=== PATIENT | female | born 1975 | race Caucasian/White ===

== ENCOUNTER → 2018-01-02 | Outpatient (CLI) | payer BC ==
[~2018-01-02] MED LIST: ATOR40TA PO; LVT.1T; PRILOSEC OTC; [UNRECOGNIZED DRUG - CODE]
--- NOTE | 2018-01-02 19:28 | Diagnostic Imaging Report ---
EXAMINATION: Thoracic spine. INDICATION: Back pain. AP and lateral views were obtained. FINDINGS: The upper thoracic spine was not well visualized on the lateral view. This area shows no abnormality on the AP view. If further study is desired, then a swimmer's view would be recommended. The vertebral body heights and alignment are generally within normal limits. The intervertebral spaces are fairly well maintained. There is no fracture or acute bony abnormality identified. There is no sign of a paraspinal mass. IMPRESSION: 1. There is no evidence for an acute bony abnormality. This exam is less than optimal as the upper thoracic spine is not well visualized on the lateral view. Additional considerations as above. 2. If there is clinical concern regarding spinal stenosis or nerve root encroachment, then MRI would be recommended for additional evaluation. Dictated by: Dictated on workstation # [id number]
--- NOTE | 2018-01-02 19:31 | Diagnostic Imaging Report ---
EXAMINATION: Cervical spine. INDICATION: Neck pain. AP, lateral, and odontoid views were obtained. There are no prior studies available for comparison. FINDINGS: The lateral view does show straightening of the cervical spine. This may be secondary to muscle spasm and/or positioning. The vertebral body heights are within normal limits, and the intervertebral spaces are fairly well maintained. There is no fracture or acute bony abnormality evident. The lateral view does show slight splaying of the spinous processes of C7 and T1. This could be a sequela of prior injury to the interspinous ligament. There is no sign of retropharyngeal edema. The lung apices are clear. IMPRESSION: 1. There is no acute bony abnormality identified. 2. There is splaying of the spinous processes of C7 and T1. This finding is nonspecific but could be a sequela of prior trauma to the interspinous ligament in this area. 3. If clinical concern regarding an underlying abnormality persists and further imaging is desired, then MRI would be recommended. Dictated by: Dictated on workstation # [id number]
== END ==
LOC: RAD 14:58
PROVIDERS: ATTEND Chiropractor
DX: M54.2 Cervicalgia (principal); M54.6 Pain in thoracic spine
CPT/HCPCS: 72040; 72070

== ENCOUNTER 2019-09-04 05:49 | Outpatient (CLI) | payer BC ==
[~2019-09-04] VITALS: Ht 167.7 cm; Wt 69.1 kg
[2019-09-04] MEDS ORDERED: PANT40TA3 PO (16:03)
[2019-09-04] MEDS ORDERED: ALPR0.254 PO (16:03)
[2019-09-04] MEDS ORDERED: LEVO88TA54 PO (16:03)
== END 2019-09-04 16:03 | disposition home or self-care (01) ==
LOC: PREOP 05:49
PROVIDERS: ATTEND Surgery
DX: Z01.818 Encounter for other preprocedural examination (principal)